=== PATIENT | female | born 1950 | race Caucasian/White ===

== ENCOUNTER → 2021-12-29 07:30 | Outpatient (CLI) | payer MEDICARE, SELFPAY ==
[2021-12-29 09:14] LABS: Alanine Aminotransferase 30 IU/L (<35); Albumin 4.4 g/dL (3.5-5.0); Albumin Globulin Ratio 1.6 (1.0-2.8); Alkaline Phosphatase 87 U/L (38-126); Aspartate Aminotransferase 47 IU/L (14-36); BUN Creatinine Ratio 16.9 (6-22); Bilirubin Total 0.6 mg/dL (0.2-1.3); Blood Urea Nitrogen 12 mg/dL (7-17); Calcium 9.3 mg/dL (8.4-10.2); Carbon Dioxide 32 mmol/L (22-32); Chloride 102 mmol/L (98-107); Cholesterol 224 mg/dL (140-199); Estimated Glomerular Filt Rate > 60 mL/min (>60); Globulin 2.8 g/dL (1.7-4.1); Glucose 95 mg/dL (80-110); HDL Cholesterol 75 mg/dL (40-60); HEMOLYSIS < 15 (0-50); LDL Cholesterol Calculated 131 mg/dL (<100); Potassium 4.5 mmol/L (3.4-5.1); Sodium 137 mmol/L (137-145); Total Protein 7.2 g/dL (6.3-8.2); Triglycerides 91 mg/dL (35-150)
[2021-12-29 09:44] LABS: Thyroid Stimulating Hormone 2.65 uIU/mL (0.47-4.68)
[2021-12-29 10:16] LABS: Creatinine Urine Random 36.1 mg/dL
[2021-12-29 10:20] LABS: Microalbumi Creatinin Ratio Ur 16.6 ug/mg CR (<30); Microalbumin Urine Random 0.6 mg/dL (0-1.6)
== END ==
PROVIDERS: PCP Nurse Practitioner; Referring Provider Nurse Practitioner; Visit Provider Nurse Practitioner
DX: E03.9 Hypothyroidism, unspecified (principal); E78.5 Hyperlipidemia, unspecified; Z79.899 Other long term (current) drug therapy
CPT/HCPCS: 36415; 80053; 80061; 82043; 82570; 84443

== ENCOUNTER → 2022-01-02 09:49 | Outpatient (CLI) | payer MEDICARE, SELFPAY ==
[2022-01-03 08:02] LABS: Fecal Immunochemical Test Negative (Negative)
== END ==
PROVIDERS: PCP Nurse Practitioner; Referring Provider Nurse Practitioner; Visit Provider Nurse Practitioner
DX: Z12.11 Encounter for screening for malignant neoplasm of colon (principal)
CPT/HCPCS: 82274

== ENCOUNTER → 2022-07-03 10:32 | Outpatient (CLI) | payer MEDICARE, SELFPAY | PROVIDERS: PCP Nurse Practitioner; Visit Provider Nurse Practitioner | DX: L98.9 Disorder of the skin and subcutaneous tissue, unspecified (principal) | CPT/HCPCS: 87070; 87205 ==

== ENCOUNTER → 2022-08-01 09:51 | Outpatient (CLI) | payer MEDICARE, SELFPAY ==
--- NOTE | 2022-08-01 09:52 | DI.MG.S_ITS ---
BILATERAL DIGITAL SCREENING MAMMOGRAM 3D/2D WITH CAD: 08/01/2022 CLINICAL: Routine screening. Comparison is made to exams dated: 07/16/2019 mammogram, 07/10/2018 mammogram, and 07/09/2017 mammogram - outside location. Both breasts are heterogeneously dense, which may obscure small masses (category c / 51-75% glandular tissue). Current study was also evaluated with a Computer Aided Detection (CAD) system. No significant masses, calcifications, or other findings are seen in either breast. There has been no significant interval change. IMPRESSION: NEGATIVE There is no mammographic evidence of malignancy. A 1 year screening mammogram is recommended. Based on the Tyrer Cuzick model (a risk assessment model) the patient's lifetime risk is 8.4% and her 10 year risk is 5.3%. According to the ACR, ACS, and NCCN guidelines, an annual breast MRI exam along with mammogram is recommended if the patient's lifetime risk is 20% or greater. This exam was interpreted at Station ID: [id number]. NOTE: For mammograms, a report in lay terms will be sent to the patient. Approximately 15% of breast malignancies will not be visualized mammographically. In the management of a palpable breast mass, a negative mammogram must not discourage biopsy of a clinically suspicious lesion. Electronically Signed By: Nevin celis/letty:08/01/2022 11:53:55 letter sent: Normal Exam ACR BI-RADS Category 1: Negative 3341F
== END ==
PROVIDERS: PCP Nurse Practitioner; Referring Provider Nurse Practitioner; Visit Provider Nurse Practitioner
DX: Z12.31 Encounter for screening mammogram for malignant neoplasm of breast (principal); Z13.820 Encounter for screening for osteoporosis; Z78.0 Asymptomatic menopausal state; M81.0 Age-related osteoporosis without current pathological fracture
CPT/HCPCS: 77063; 77067; 77080

== ENCOUNTER → 2023-04-14 08:26 | Outpatient (CLI) | payer MEDICARE, SELFPAY ==
[2023-04-14 10:01] LABS: Add Manual Diff / Slide Review NO; Basophils Absolute Auto 0 /uL (0-100); Basophils Percent Auto 0.7 % (0-2); Eosinophils Absolute Auto 100 /uL (0-450); Eosinophils Percent Auto 3.4 % (2-4); Hematocrit 36.5 % (36-46); Hemoglobin 12.6 g/dL (12.0-16.0); Lymphocytes Absolute Auto 1300 /uL (1100-4500); Lymphocytes Percent Auto 31.2 % (25-40); Mean Corpuscular HGB Conc 34.4 % (30-36); Mean Corpuscular Hemoglobin 33.6 PG (26-34); Mean Corpuscular Volume 97.6 fL (80-100); Monocytes Absolute Auto 400 /uL (0-900); Neutrophils Absolute Auto 2300 /uL (1500-7000); Neutrophils Percent Auto 54.7 % (50-75); Platelet Count 228 X10^3/uL (150-400); Red Blood Cell Count 3.74 X10^6/uL (4.0-5.2); Red Cell Distribution Width 12.3 % (11.6-14.8); White Blood Cell Count 4.2 X10^3/uL (4.5-11.0)
[2023-04-14 10:14] LABS: Alanine Aminotransferase 23 IU/L (<35); Albumin 4.1 g/dL (3.5-5.0); Albumin Globulin Ratio 1.5 (1.0-2.8); Alkaline Phosphatase 73 U/L (38-126); Aspartate Aminotransferase 39 IU/L (14-36); BUN Creatinine Ratio 16.7 (6-22); Bilirubin Total 0.5 mg/dL (0.2-1.3); Blood Urea Nitrogen 12 mg/dL (7-17); Calcium 9.9 mg/dL (8.4-10.2); Carbon Dioxide 31 mmol/L (22-32); Chloride 102 mmol/L (98-107); Cholesterol 219 mg/dL (140-199); Estimated Glomerular Filt Rate > 60 mL/min (>60); Globulin 2.7 g/dL (1.7-4.1); Glucose 98 mg/dL (80-110); HDL Cholesterol 95 mg/dL (40-60); HEMOLYSIS < 15 (0-50); LDL Cholesterol Calculated 112 mg/dL (<100); Potassium 4.3 mmol/L (3.4-5.1); Sodium 137 mmol/L (137-145); Total Protein 6.8 g/dL (6.3-8.2); Triglycerides 59 mg/dL (35-150)
[2023-04-14 10:47] LABS: Thyroid Stimulating Hormone 2.34 uIU/mL (0.47-4.68)
[2023-04-16 18:27] LABS: Arsenic 4 ug/L (0-9); Cadmium, Blood <0.5 ug/L (0.0-1.2); Lead, Blood 1.1 ug/dL (0.0-3.4)
[2023-04-16 19:53] LABS: Hep C Virus Ab w/Reflex Quant NEGATIVE s/c (NEGATIVE)
== END ==
PROVIDERS: PCP Nurse Practitioner; Referring Provider Nurse Practitioner; Visit Provider Nurse Practitioner
DX: E03.9 Hypothyroidism, unspecified (principal); E78.2 Mixed hyperlipidemia; Z77.018 Contact with and (suspected) exposure to other hazardous metals; Z11.59 Encounter for screening for other viral diseases
CPT/HCPCS: 36415; 80053; 80061; 82175; 82300; 83655; 83825; 84443; 85025; 86803

== ENCOUNTER → 2023-04-17 09:05 | Outpatient (CLI) | payer MEDICARE, SELFPAY ==
--- NOTE | 2023-04-17 09:13 | DI.US.S_ITS ---
PROCEDURE: US ABDOMEN LIMITED INDICATIONS: ELEVATED LIVER FUNCTION TEST TECHNIQUE: Real-time focused scanning was performed of the abdomen, with image documentation. COMPARISON: None. FINDINGS: Liver is normal in echotexture and appearance. Gallbladder is normal without evidence for cholelithiasis or gallbladder wall thickening. Common bile duct is normal at 3 mm. Visualized portions of the pancreas appear within normal limits. IMPRESSION: 1. Unremarkable right upper quadrant ultrasound. Dictated by: Rohan Mendieta M.D. on 04/17/2023 at 12:01 Approved by: Rohan Mendieta M.D. on 04/17/2023 at 12:04
== END ==
PROVIDERS: PCP Nurse Practitioner; Referring Provider Nurse Practitioner; Visit Provider Nurse Practitioner
DX: R79.89 Other specified abnormal findings of blood chemistry (principal)
CPT/HCPCS: 76705

== ENCOUNTER → 2023-08-28 08:14 | Outpatient (CLI) | payer MEDICARE, SELFPAY ==
--- NOTE | 2023-08-28 08:15 | DI.MG.S_ITS ---
BILATERAL DIGITAL SCREENING MAMMOGRAM 3D/2D WITH CAD: 08/28/2023 CLINICAL: Routine screening. Comparison is made to exams dated: 08/01/2022 mammogram - [facility], 07/16/2019 mammogram, and 07/10/2018 mammogram - outside location. Both breasts are heterogeneously dense, which may obscure small masses (category c / 51-75% glandular tissue). Current study was also evaluated with a Computer Aided Detection (CAD) system. No significant masses, calcifications, or other findings are seen in either breast. There has been no significant interval change. IMPRESSION: NEGATIVE There is no mammographic evidence of malignancy. A 1 year screening mammogram is recommended. Based on the Tyrer Cuzick model (a risk assessment model) the patient's lifetime risk is 8.0% and her 10 year risk is 5.5%. According to the ACR, ACS, and NCCN guidelines, an annual breast MRI exam along with mammogram is recommended if the patient's lifetime risk is 20% or greater. This exam was interpreted at Station ID: [id number]. NOTE: For mammograms, a report in lay terms will be sent to the patient. Approximately 15% of breast malignancies will not be visualized mammographically. In the management of a palpable breast mass, a negative mammogram must not discourage biopsy of a clinically suspicious lesion. Electronically Signed By: Augustine hudson/letty:08/28/2023 13:14:06 letter sent: Normal Exam ACR BI-RADS Category 1: Negative [id number]
== END ==
PROVIDERS: PCP Nurse Practitioner; Referring Provider Nurse Practitioner; Visit Provider Nurse Practitioner
DX: Z12.31 Encounter for screening mammogram for malignant neoplasm of breast (principal); R92.333 Mammographic heterogeneous density, bilateral breasts
CPT/HCPCS: 77063; 77067

== ENCOUNTER 2024-04-22 13:30 | Emergency (ER) | payer MEDICARE, SELFPAY ==
[2024-04-22 13:40] VITALS: BP 144/72; PULSE 74; RESP 16; TEMP 36.8; O2SAT 97; BMI 21.9
--- NOTE | 2024-04-22 14:20 | DI.RAD.S_ITS ---
PROCEDURE: XR TIBIA FUBULA RT 2V INDICATIONS: blunt injury with lac TECHNIQUE: 2 views of the tibia and fibula were acquired. COMPARISON: None. FINDINGS: Bones: No acute displaced fracture of the tibial shaft or fibular shaft. Mild ankle degenerative changes. Soft tissues: No suspicious soft tissue calcifications. IMPRESSION: No acute fracture of the tibial shaft or fibular shaft. Dictated by: Isrrael Waterman M.D. on 04/22/2024 at 15:12 Approved by: Isrrael Waterman M.D. on 04/22/2024 at 15:13
[2024-04-22] MEDS: TET,DIPH,PERTUSS(ACELL),VAC/PF 0.5 ML SYRINGE IM (14:43)
[2024-04-22] MEDS: LIDOCAINE 2% W/EPI INJ 10 ML VIAL 20 ML INJ (15:21)
[2024-04-22 17:19] VITALS: BP 204/95; PULSE 61; RESP 19; O2SAT 99
--- NOTE | 2024-04-22 18:54 | ED_ITS ---
HPI - Wound/Laceration <Nargis Mascorro PA-C - Last Filed: 04/28/24 15:18> General Chief Complaint: Wound/Laceration Stated Complaint: Fall, leg laceration, no blood thinners Time Seen by Provider: 04/22/24 13:54 Source: patient Mode of arrival: Ambulatory History of Present Illness HPI narrative: 73-year-old female presents to the ED with 2 leg lacerations of the right lower leg, following a mechanical trip and fall injury. Patient states that she was rushing in [place] the [place] into the [place] since it was so cold, tripped on some metal and cut her right cook. Bleeding is controlled with pressure. Tetanus status unknown. Patient is not on blood thinners. Related Data Home Medications Medication Instructions Recorded Confirmed Lactobacillus rhamnosus GG 20 cell PO QAM 11/30/21 04/30/24 billion cell capsule (Probiotic Digestive Care) coenzyme Q10 300 mg capsule 300 mg PO DAILY 11/30/21 04/30/24 ibuprofen 200 mg tablet 200 mg PO Q6H PRN 11/30/21 04/30/24 melatonin See Rx Instructions PO .COMPLEX 11/30/21 04/30/24 naproxen sodium 220 mg tablet See Rx Instructions PO QAM PRN 11/30/21 04/30/24 calcium and vitamin d3 See Rx Instructions .Route .COMPLEX 08/16/22 04/30/24 Plant Calcium Bone Strength 1 cap PO TID 04/10/23 04/30/24 andreea/mag/zinc/D3 PO 04/10/23 04/30/24 psyllium husk 0.4 gram capsule 0.4 g PO DAILY 04/10/23 04/30/24 Previous Rx's Medication Instructions Recorded acyclovir 400 mg tablet 400 mg PO TID #270 tabs 01/04/22 acyclovir 5 % topical cream 1 applic topical 5XD 4 days #5 03/14/22 grams levothyroxine 75 mcg tablet 75 mcg PO DAILY #90 tabs 04/19/23 duloxetine 30 mg capsule,delayed 30 mg PO DAILY #90 caps 12/28/23 release atorvastatin 20 mg tablet 20 mg PO BEDTIME #90 tabs 01/28/24 gabapentin 600 mg tablet See Rx Instructions PO .COMPLEX 04/18/24 pain #360 tabs Allergies Allergy/AdvReac Type Severity Reaction Status Date / Time No Known Drug Allergies Allergy Unverified 04/30/24 11:35 Review of Systems <Nargis Mascorro PA-C - Last Filed: 04/28/24 15:18> Constitutional Constitutional: Denies chills, Denies fatigue, Denies fever(s), Denies frequent falls, Denies lethargy and Denies weakness Eyes Eyes: Denies change in vision, Denies eye discharge, Denies irritation and Denies loss of vision ENT Ears, Nose, Mouth, and Throat: Denies change in voice, Denies dizziness, Denies neck pain, Denies sore throat and Denies throat swelling Cardiovascular Cardiovascular: Denies chest pain, Denies irregular heart rhythm, Denies lightheadedness, Denies palpitations, Denies dyspnea, Denies dyspnea on exertion and Denies orthopnea Respiratory Respiratory: Denies cough, Denies dyspnea, Denies dyspnea on exertion and Denies wheezing Gastrointestinal Gastrointestinal: Denies abdominal pain, Denies change in bowel habits, Denies diarrhea, Denies nausea and Denies vomiting Musculoskeletal Musculoskeletal: Denies neck pain and Denies numbness Integumentary/Breasts Skin/Breast: Denies pruritus, Denies erythema, Denies rash and Reports wounds Neurologic Neurologic: Denies behavioral changes, Denies confusion, Denies dizziness, Denies frequent falls, Denies loss of vision, Denies numbness and Denies weakn ess Psychiatric Psychiatric: Denies anxiety, Denies behavioral changes, Denies confusion, Denies depression, Denies homicidal ideation and Denies suicidal ideation Endocrine Endocrine: Denies fatigue, Denies flushing and Denies palpitations Hematologic/Lymphatic Hematologic/Lymphatic: Denies easy bruising Allergic/Immunologic Allergic/Immunologic: Denies urticaria, Denies throat swelling and Denies wh eezing Patient History <Nargis Mascorro PA-C - Last Filed: 04/28/24 15:18> Medical History Chromhidrosis Osteoporosis Raynaud's phenomenon (by history or observed) Hypothyroidism (acquired) Hyperlipidemia Social History Smoking Status: Former smoker alcohol intake: current (1 cocktail and 1--2 glasses of wine per night most days of the week) substance use type: marijuana (couple tokes each night to help me sleep) Smoking Status: Former smoker Exam <Nargis Mascorro PA-C - Last Filed: 04/28/24 15:18> Narrative Exam Narrative: Const General:?cooperative, healthy appearing and comfortable [facility] Head:?normal to inspection Ears:?hearing grossly normal bilaterally Nose:?external nose normal Face and sinus:?normal facial exam and sinuses nontender Mouth:?oral mucosae normal Throat:?posterior oropharynx normal Eyes General:?appearance normal, both eyes and all related structures Neck Neck:?normal visual inspection and no lymphadenopathy noted Resp Effort & Inspection:?normal respiratory effort Auscultation:?clear to auscultation bilaterally Cardio Rate:?regular rate Rhythm:?regular rhythm Musculoskeletal/integumentary There are 2 chevron-shaped flap lacerations on the right cook. The proximal 1 is smaller, about 1 cm. The distal, larger laceration is about 5 cm. No deeper structures visualized on exam. Patient is neurovascularly intact. Neuro General:?patient alert, patient awake and patient oriented x3 Initial Vital Signs Initial Vital Signs: Vital Signs Temperature 98.3 F 04/22/24 13:40 Pulse Rate 74 04/22/24 13:40 Respiratory Rate 16 04/22/24 13:40 Blood Pressure 144/72 H 04/22/24 13:40 Pulse Oximetry 97 04/22/24 13:40 Oxygen Delivery Method Room Air 04/22/24 13:40 <Vanna Burger MD - Last Filed: 05/01/24 07:18> Initial Vital Signs Initial Vital Signs: Vital Signs Temperature 98.3 F 04/22/24 13:40 Pulse Rate 74 04/22/24 13:40 Respiratory Rate 16 04/22/24 13:40 Blood Pressure 144/72 H 04/22/24 13:40 Pulse Oximetry 97 04/22/24 13:40 Oxygen Delivery Method Room Air 04/22/24 13:40 Procedures <Nargis Mascorro PA-C - Last Filed: 04/28/24 15:18> Laceration Repair Laceration 1: Site: lower extremity Side (If applicable): right Size (cm): 1 Description: linear Local Anesthetic: lidocaine 2% and with epi Amount of anesthesia used (mL): 0.5 Pre-repair: wound explored, irrigated extensively and deep structures intact Skin layer closed with: nylon Skin layer suture size: 4-0 Number of sutures: 2 Technique: simple, interrupted Laceration 2: Site: lower extremity Side (If applicable): right Size (cm): 5 Description: flap Depth: simple, single layer Local Anesthetic: lidocaine 2% and with epi Amount of anesthesia used (mL): 4 Pre-repair: wound explored, irrigated extensively and deep structures intact Skin layer closed with: nylon Skin layer suture size: 4-0 Number of sutures: 7 Technique: simple, interrupted Course <Nargis Mascorro PA-C - Last Filed: 04/28/24 15:18> Orders Ordered: Discontinued Medications Diphtheria/Tetanus/Acell Pertussis (Tet,Diph,Pertuss(Acell),Vac/Pf 0.5 Ml Syringe) 0.5 ml IM .ONCE ONE Stop: 04/22/24 14:36 Last Admin: 04/22/24 14:43 Dose: 0.5 ml Documented By: THIERRY Lidocaine/Epinephrine (Lidocaine 2% W/Epi Inj 10 Ml Vial) 20 ml INJ INTRA-OP ONE Stop: 04/22/24 15:08 Last Admin: 04/22/24 15:21 Dose: 20 ml Documented By: THIERRY Vital Signs Vital signs: Vital Signs - 8 hr 04/22/24 13:40 04/22/24 17:19 Temperature 98.3 F Pulse Rate 74 61 Respiratory Rate 16 19 Blood Pressure 144/72 H 204/95 H Pulse Oximetry 97 99 Oxygen Delivery Method Room Air Room Air <Vanna Burger MD - Last Filed: 05/01/24 07:18> Orders Ordered: Discontinued Medications Diphtheria/Tetanus/Acell Pertussis (Tet,Diph,Pertuss(Acell),Vac/Pf 0.5 Ml Syringe) 0.5 ml IM .ONCE ONE Stop: 04/22/24 14:36 Last Admin: 04/22/24 14:43 Dose: 0.5 ml Documented By: THIERRY Lidocaine/Epinephrine (Lidocaine 2% W/Epi Inj 10 Ml Vial) 20 ml INJ INTRA-OP ONE Stop: 04/22/24 15:08 Last Admin: 04/22/24 15:21 Dose: 20 ml Documented By: THIERRY Vital Signs Vital signs: Vital Signs - 8 hr 04/22/24 13:40 04/22/24 17:19 Temperature 98.3 F Pulse Rate 74 61 Respiratory Rate 16 19 Blood Pressure 144/72 H 204/95 H Pulse Oximetry 97 99 Oxygen Delivery Method Room Air Room Air MDM - Wound/Laceration <Nargis Mascorro PA-C - Last Filed: 04/28/24 15:18> [facility] Narrative Medical decision making narrative: 73-year-old female presents to the ED with 2 leg lacerations of the right lower leg, following a mechanical trip and fall injury. X-ray was obtained to rule out fracture/dislocation. X-ray shows no acute fracture of the tibial shaft or fibular shaft. There are 2 flap lacerations which were repaired with sutures. Total 9 sutures. Tetanus was updated. Wound care, signs of infection, suture removal discussed with patient. ED return precautions discussed with patient. Patient verbalized understanding. Medical records reviewed: Yes Discharge Plan Departure Patient Disposition: Home Clinical Impression: Laceration Instructions: DI for Laceration Repair Activity Restrictions/Additional Instructions: You were evaluated in the ED today for a leg injury. Your x-rays were normal. There were 2 lacerations that were repaired with 9 total sutures. The sutures will need to be removed in 7-10 days. You may go to your PCP's office, a walk- in clinic, or return to the ED. your tetanus was updated today, which will be good for the next 10 years. You may keep the wound clean and dry for the 1st 24 hours, following which you may wash gently with soap and water, dry and dress with a bandage. Please watch for signs of infection including worsening redness, pain, swelling, warmth, discharge. Return to the ED if you note any signs of infection. Prescriptions: No Action Probiotic Digestive Care 20 billion cell capsule PO QAM naproxen sodium 220 mg tablet See Rx Instructions PO QAM PRN Patient Comments: Pt takes 1 1/2 to 2 tabs daily in the morning. Rx Instructions: orally every morning PRN; coenzyme Q10 300 mg capsule 300 mg PO DAILY melatonin See Rx Instructions PO .COMPLEX Rx Instructions: 1-3 gummies, orally HS ibuprofen 200 mg tablet 200 mg PO Q6H PRN Patient Comments: Pt takes IBP 600mg mid day as needed and 200mg 1 1/2 PM acyclovir 400 mg tablet 400 mg PO TID Qty: 270 3RF acyclovir 5 % cream 1 applic topical 5XD 4 Days Qty: 5 1RF levothyroxine 75 mcg tablet 75 mcg PO DAILY Qty: 90 3RF duloxetine 30 mg capsule,delayed release(/EC) 30 mg PO DAILY Qty: 90 3RF atorvastatin 20 mg tablet 20 mg PO BEDTIME Qty: 90 1RF gabapentin 600 mg tablet See Rx Instructions PO .COMPLEX Qty: 360 0RF Rx Instructions: Take 1 tab by mouth up to 4x/day as needed for pain calcium and vitamin d3 See Rx Instructions .ROUTE .COMPLEX Rx Instructions: Calcium 600mg twice per day (dietary or supplement) with vitamin D3 2000iu twice per day; andreea/mag/zinc/D3 PO Patient Comments: Andreea 1000mg, mag 400mg, zinc 25mg, D3 15mcg 2.5 caps daily Plant Calcium Bone Strength 1 cap PO TID psyllium husk 0.4 gram capsule 0.4 g PO DAILY Patient Comments: 500mg six times daily Referrals: Courtney Salomon DO [Primary Care Provider] - Stand Alone Forms: Patient Portal/API/Survey ED Sign-out <Vanna Burger MD - Last Filed: 05/01/24 07:18> Cosign ED Attending Cosignature Attestation: I was immediately available in the department for consultation throughout this patient's visit. Vanna Burger MD
== END 2024-04-22 17:25 | disposition home or self-care (01) ==
PROVIDERS: Emergency Provider Student in an Organized Health Care Education/Training Program; PCP Family Medicine
DX: S81.811A Laceration without foreign body, right lower leg, initial encounter (principal); W26.8XXA Contact with other sharp object(s), not elsewhere classified, initial encounter; W01.118A Fall on same level from slipping, tripping and stumbling with subsequent striking against other sharp object, initial encounter; Z23 Encounter for immunization
CPT/HCPCS: 12002; 73590; 90471; 99283; 99284; 90715

== ENCOUNTER → 2024-05-29 07:57 | Outpatient (CLI) | payer MEDICARE, SELFPAY ==
[2024-05-29 09:14] LABS: Add Manual Diff / Slide Review NO; Basophils Absolute Auto 0 /uL (0-100); Eosinophils Absolute Auto 200 /uL (0-450); Eosinophils Percent Auto 3.9 % (2-4); Hematocrit 42.5 % (36-46); Hemoglobin 14.1 g/dL (12.0-16.0); Lymphocytes Absolute Auto 1500 /uL (1100-4500); Mean Corpuscular HGB Conc 33.2 % (30-36); Mean Corpuscular Hemoglobin 32.9 PG (26-34); Monocytes Absolute Auto 400 /uL (0-900); Monocytes Percent Auto 8.3 % (3-14); Neutrophils Absolute Auto 2700 /uL (1500-7000); Neutrophils Percent Auto 54.8 % (50-75); Platelet Count 329 X10^3/uL (150-400); White Blood Cell Count 4.8 X10^3/uL (4.5-11.0)
[2024-05-29 09:35] LABS: Alanine Aminotransferase 18 IU/L (<35); Albumin 4.5 g/dL (3.5-5.0); Albumin Globulin Ratio 1.7 (1.0-2.8); Alkaline Phosphatase 72 U/L (38-126); Aspartate Aminotransferase 30 IU/L (14-36); BUN Creatinine Ratio 15.3 (6-22); Bilirubin Total 0.7 mg/dL (0.2-1.3); Blood Urea Nitrogen 13 mg/dL (7-17); Calcium 10.2 mg/dL (8.4-10.2); Carbon Dioxide 29 mmol/L (22-32); Chloride 102 mmol/L (98-107); Cholesterol 292 mg/dL (140-199); Estimated Glomerular Filt Rate > 60 mL/min (>60); Globulin 2.7 g/dL (1.7-4.1); Glucose 102 mg/dL (80-110); HEMOLYSIS < 15 (0-50); Potassium 4.3 mmol/L (3.4-5.1); Sodium 139 mmol/L (137-145); Total Protein 7.2 g/dL (6.3-8.2); Triglycerides 145 mg/dL (35-150)
[2024-05-29 09:42] LABS: HDL Cholesterol 108 mg/dL (40-60); LDL Cholesterol Calculated 155 mg/dL (<100)
[2024-05-29 09:51] LABS: Vitamin D 25 Hydroxy (D3) 39.4 ng/mL (30.0-100.0)
[2024-05-29 10:06] LABS: Thyroid Stimulating Hormone 3.49 uIU/mL (0.47-4.68)
== END ==
PROVIDERS: PCP Family Medicine; Referring Provider Family Medicine; Visit Provider Family Medicine
DX: I73.00 Raynaud's syndrome without gangrene (principal); E03.9 Hypothyroidism, unspecified; M81.0 Age-related osteoporosis without current pathological fracture; E78.5 Hyperlipidemia, unspecified
CPT/HCPCS: 36415; 80053; 80061; 82306; 84443; 85025

== ENCOUNTER → 2024-12-30 11:22 | Outpatient (CLI) | payer MEDICARE, SELFPAY ==
--- NOTE | 2024-12-30 | DI.RAD.S_ITS ---
PROCEDURE: XR LUMBAR SPINE 2-3V INDICATIONS: POSSIBLE FRACTURE TECHNIQUE: 3 views of the lumbar spine were acquired. COMPARISON: None. FINDINGS: Lumbar spine curvature and alignment: Mild levoscoliosis of the lower thoracic and lumbar spine appreciated Bones: There are no fractures or other osseous abnormalities. Disc spaces: Severe L1-2, L2-3 moderate L3-4 severe L4-5 and severe L5-S1 degenerative disc disease noted. Moderate L3-4 L4-5 severe L5-S1 degenerative facet disease Soft tissues: No soft tissue swelling, calcification or mass. IMPRESSION: Degeneration Dictated by: Julián Wilkins M.D. on 12/31/2024 at 13:26 Approved by: Julián Wilkins M.D. on 12/31/2024 at 13:27
--- NOTE | 2024-12-30 | DI.RAD.S_ITS ---
PROCEDURE: XR CERVICAL SPINE 2V OR 3V INDICATIONS: POSSIBLE FRACTURE TECHNIQUE: Three views of the cervical spine were acquired. COMPARISON: None. FINDINGS: Cervical spine curvature and alignment: Normal. Bones: There are no fractures or other osseous abnormalities. Disc spaces: Severe C3-4 C4-5 C5-6 C6-7 degenerative disc disease noted. Moderate C2-3 through C7-T1 degenerative facet disease Soft tissues: No soft tissue swelling, calcification or mass. IMPRESSION: Degeneration Dictated by: Julián Wilkins M.D. on 12/31/2024 at 13:24 Approved by: Julián Wilkins M.D. on 12/31/2024 at 13:25
--- NOTE | 2024-12-30 | DI.RAD.S_ITS ---
PROCEDURE: XR THORACIC SPINE 2V INDICATIONS: POSSIBLE FRACTURE TECHNIQUE: Two views of the thoracic spine were acquired. COMPARISON: None. FINDINGS: Thoracic spine curvature and alignment: Slight rightward curve appreciated Bones: There are no fractures or other osseous abnormalities. Disc spaces: Mild degenerative disc disease seen throughout the thoracic spine Soft tissues: No soft tissue swelling, calcification or mass. IMPRESSION: Degeneration Dictated by: Julián Wilkins M.D. on 12/31/2024 at 13:25 Approved by: Julián Wilkins M.D. on 12/31/2024 at 13:26
== END ==
PROVIDERS: PCP Family Medicine; Referring Provider Chiropractor; Visit Provider Chiropractor
DX: M54.9 Dorsalgia, unspecified (principal); M50.30 Other cervical disc degeneration, unspecified cervical region; M51.369 Other intervertebral disc degeneration, lumbar region without mention of lumbar back pain or lower extremity pain; M51.34 Other intervertebral disc degeneration, thoracic region
CPT/HCPCS: 72040; 72070; 72100

== ENCOUNTER → 2025-05-09 08:42 | Outpatient (CLI) | payer MEDICARE, SELFPAY ==
--- NOTE | 2025-05-09 08:46 | DI.MG.S_ITS ---
MM screening mammo BI: 05/09/2025. BI-RADS: 1 CLINICAL: 74-year old female for bilateral screening mammogram. Tyrer-Cuzick lifetime risk of 4.4%. No personal or first-degree family history of breast cancer. PRIOR EXAMS 08/28/2023, 08/01/2022, 07/16/2019, 07/10/2018. MAMMOGRAPHY TECHNIQUE: 2D and 3D (tomosynthesis) digital mammographic views obtained, with additional images as needed for full coverage. Current study was also evaluated with a Computer Aided Detection (CAD) system. DENSITY C. The breasts are heterogeneously dense, which may obscure small masses. MAMMOGRAPHY FINDINGS Bilateral: No suspicious mass, asymmetry, microcalcification, or other abnormality seen. IMPRESSION: * No evidence of malignancy. RECOMMENDATIONS Bilateral * Annual screening mammography. OVERALL ASSESSMENT CATEGORY BI-RADS-1: Negative. [employer] recommends annual screening mammography beginning at age 40 for women with average risk of breast cancer. ELECTRONICALLY SIGNED: Nicole Beckham M.D. on 05/11/2025 at 05:03:27 PM PT Interpreting Station ID: [id number]
== END ==
LOC: MAMMO 08:44
PROVIDERS: PCP Family Medicine; Referring Provider Family Medicine; Visit Provider Family Medicine
DX: Z12.31 Encounter for screening mammogram for malignant neoplasm of breast (principal); R92.333 Mammographic heterogeneous density, bilateral breasts
CPT/HCPCS: 77063; 77067